=== PATIENT | female | born 1950 | race Caucasian/White ===

== ENCOUNTER → 2017-07-27 | Day surgery (SDC) | payer BC ==
[2017-07-24 10:00] VITALS: Ht 157.5 cm; Wt 100.0 kg
[~2017-07-27] VITALS: Ht 157.5 cm; Wt 100.0 kg
[~2017-07-27] MED LIST: ASCO1CAP3 PO; BUPIVACAINE 0.25% 2.5MG/ML PF 10 ML VIAL ONE; CHOL400T PO; CLX/20 PO; CZR50 PO; DTRSR/10 PO; HYDR12.55 PO; IOPAMIDOL INJ 61% 15 ML VIAL ONE; LIDOCAINE HCL 1% MPF 5 ML VIAL ONE; MELO-83 PO; OMEP-334 PO; TMPOPS15 OPB; VITA10004 PO
--- NOTE | 2017-07-27 15:07 | History & Physical Bridge - [place] ---
H&P Re-Evaluation Bridge Note: I have examined the patient, reviewed the History & Physical and in the interval since the performance of the History & Physical I have noted the following changes of clinical significance: No changes noted
--- NOTE | 2017-07-27 15:29 | [facility] Post Operative Brief Note ---
Immediate Operative Summary Operative Date Jul 27, 2017. Pre-Operative Diagnosis Bilateral sacroiliitis Leg legnth discrepancy Post-Operative Diagnosis Same Procedure(s) Performed Bilateral Sacroiliac Joint Injection Surgeon Dr Cyrus Prince Correction Warden Surgeon(s) None Estimated Blood Loss 0 Findings Consistent with Post-Op Diagnosis Specimens NA Drains None Anesthesia Type Local Complication(s) none Disposition Disposition:
--- NOTE | 2017-07-27 15:30 | Discharge Instructions ---
Discharge Instructions Date of Service Jul 27, 2017. Visit Reason for Visit: Sacroiliitis Discharge Discharge Diagnosis / Problem: low back pain Discharge Goals Goal(s): Decrease discomfort, Improve function Activity Recommendations Activity Limitations: resume your previous activity Anesthesia . Post Anesthesia Instructions: If you have had General Anesthesia or IV Sedation: * Do not drive today. * Resume driving when surgeon permits. * Do not make important decisions or sign legal documents today. * Call surgeon for: 1. Temperature elevations greater than 101 degrees F. 2. Uncontrollable pain. 3. Excessive bleeding. 4. Persistent nausea and vomiting. 5. Medication intolerance (nausea, vomiting or rash). * For nausea and vomiting use only clear liquids such as: tea, soda, bouillon until nausea subsides, then gradually increase diet as tolerated. * If you have any concerns or questions, call your surgeon's office. If physician is unavailable and it is an emergency, call 911 or go to the nearest emergency room. . Diet Recommendations Recommended Home Diet: no limitations Procedures Procedures Performed: Bilateral Sacroiliac Joint Injection Pending Studies Studies pending at discharge: no Medical Emergencies . Who to Call and When: Medical Emergencies: If at any time you feel your situation is an emergency, please call 911 immediately. . Non-Emergent Contact Non-Emergency issues call your: Specialist . . "Provider Documentation" section prepared by Cyrus Prince. .
[2017-07-27 15:31] VITALS: TEMP 36.6
[2017-07-27 15:53] VITALS: BP 154/82; PULSE 83; O2SAT 97
--- NOTE | 2017-07-27 16:42 | OPERATIVE REPORT ---
DATE OF OPERATION: 07/27/2017 PREOPERATIVE DIAGNOSES: Bilateral sacroiliitis, underlying leg length discrepancy. POSTOPERATIVE DIAGNOSES: Bilateral sacroiliitis, underlying leg length discrepancy. PROCEDURE: Bilateral sacroiliac joint injections under fluoroscopic guidance. INDICATIONS: Patient is a 67-year-old white female who has received SI joint injections in the past, last time was November 2015. She did well for a number of months following that injection. Just recently she began having SI pain, worse on the left than the right and she presents today for SI joint injection to provide her with relief. PHYSICAL EXAMINATION: Pleasant female seated comfortably. She has point tenderness to palpation of the left SI joint and right SI joint, sciatic notches are nontender. A modified positive Maurice maneuver and positive sacral compression maneuver. CONSENT: Verbal and written consent was obtained from the patient. Risks and benefits were reviewed. Risks include but are not limited to abscess and allergic reaction. Patient wishes to proceed. PROCEDURE: Patient was taken back to the special procedures room of [facility] where she was maintained in a prone position. Backside was cleansed with Betadine x3 and a dry sterile dressing was applied. Fluoroscope was used to identify the left SI joint. Overlying skin was anesthetized with 2.5 mL of lidocaine 1% with a 25 gauge 1.5-inch needle. A 25 gauge 3.5-inch spinal needle was then directed under fluoroscopic guidance into the SI joint. Isovue-300 contrast 0.25 mL was injected, showed it to be intra-articular. She then underwent injection of 1.5 mL of bupivacaine and 40 mg of Depo-Medrol. Injection was well tolerated. The right SI joint was then fluoroscopically identified. Overlying skin was anesthetized with 2.5 mL of lidocaine 1% with a 25 gauge 1.5-inch needle. A 25 gauge 3.5-inch spinal needle was then directed under fluoroscopic guidance into the joint. Isovue-300 contrast 0.25 mL was injected which demonstrated intraarticular placement. She then underwent injection after negative aspiration of 40 mg of Depo-Medrol and 1.5 mL of bupivacaine 0.25%. Injection was well tolerated. DISPOSITION: 1. Patient was taken out into the discharge recovery area where she will be discharged home once discharge criteria have been met. 2. Follow up in the [facility] office in 4 weeks' time. I attest to the content of the Intraoperative Record and any orders documented therein. Any exception s are noted below.
== END | disposition home or self-care (01) ==
LOC: X.SURG 14:06
PROVIDERS: ATTEND Physical Medicine & Rehabilitation
DX: M46.1 Sacroiliitis, not elsewhere classified (principal); M21.70 Unequal limb length (acquired), unspecified site; Z79.899 Other long term (current) drug therapy